=== PATIENT | male | born 1955 | race Caucasian/White ===

== ENCOUNTER 2020-10-22 14:06 | Emergency (ER) | payer MEDICARE ==
[~2020-10-22] VITALS: Ht 182.9 cm; Wt 117.9 kg
--- NOTE | 2020-10-22 14:14 | Emergency Room Report ---
History of Present Illness General Chief Complaint: General Complaint Source: Patient Present Illness HPI 65-year-old male here with a fever. Patient lives at an assisted living facility and has a history of cerebral palsy, mild cognitive impairment, type 2 diabetes, hypertension, hyperlipidemia, hypothyroidism, thyroidectomy, remote history of meningioma. Per the report the patient had a fever of 100.4 F yesterday. He has been feeling of some nasal congestion as well. He was on Levaquin approximately 2-1/2 weeks ago for "a sinus infection." He says that his nasal congestion has somewhat improved but is persisting. He tested negative for Covid 4 days ago but says that he has been around other patients that have had Covid-like symptoms. He ambulated here from the assisted living facility without difficulty. Denies headache, vision changes, chills, chest pain, palpitations, shortness of breath, back pain, abdominal pain, nausea, vomiting, diarrhea, dysuria. Has had a dry cough but is nonproductive. Allergies: Coded Allergies: No Known Allergies (Unverified , 10/22/20) COVID-19 Screening Contact w/high risk pt: Yes Experienced COVID-19 symptoms?: Yes COVID-19 Testing performed [employer]: Yes - 10/18/20 COVID-19 Screening: Negative COVID-19 COVID-19 Testing Source: nose Nursing Documentation-[facility] Hx Hypertension: Yes Hx Diabetes: Yes Review of Systems All Other Systems: negative except mentioned in HPI Physical Exam Vital Signs Date Time Temp Pulse Resp B/P (MAP) Pulse Ox O2 Delivery O2 Flow Rate FiO2 10/22/20 14:07 Room Air Sp02 EP Interpretation: reviewed, normal General Appearance: no apparent distress, alert, non-toxic Head: normocephalic, atraumatic Eyes: bilateral eye normal inspection, bilateral eye PERRL ENT: hearing grossly normal, normal pharynx, no angioedema, normal voice Neck: full range of motion, supple/symm/no masses Respiratory: chest non-tender, lungs clear, normal breath sounds, speaking full sentences Cardiovascular #1: regular rate, rhythm, no edema Cardiovascular #2: 2+ carotid (R), 2+ carotid (L), 2+ radial (R), 2+ radial (L), 2+ dorsalis pedis (R), 2+ dorsalis pedis (L) Gastrointestinal: normal bowel sounds, non tender, soft, non-distended, no guarding, no rebound Rectal: deferred Genitourinary: normal inspection, no CVA tenderness Musculoskeletal: back normal, normal range of motion, gait/station normal, non- tender Neurologic: alert, motor strength/tone normal, oriented x3, sensory intact, responsive, speech normal Psychiatric: judgement/insight normal, memory normal, mood/affect normal, no suicidal/homicidal ideation Lymphatic: no adenopathy Medical Decision Making Diagnostic Impression: Primary Impression: COVID-19 Additional Impression: Fever ER Course Total critical care time: Approximately 35 minutes Due to a high probability of clinically significant, life threatening deterioration, the patient required the highest level of preparedness to intervene emergently and I personally spent this critical care time directly and personally managing the patient. This critical care time included obtaining a history, examining the patient, pulse oximetry, ordering and reviewing studies, ordering treatments, evaluating response to treatment and updating management plan as needed, frequent reassessment and discussion with other providers as well as arranging for ultimate disposition. This critical to care time was performed to assess and manage the high probability of life-threatening deterioration that could result in multiorgan failure. This critical care time is separate from the separately billable procedures and treating other patients. CXR: No infiltrate/effusion. Mediastinum within normal limits. No consolidations. No free air under the diaphragm. No bony abnormalities EKG: NSR, no ischemia, intervals WNL. No ectopy. Rate 76 bpm Rhythm strip: patient monitored for arrhythmias - no malignant dysrhythmias, runs of PVCs, nor pauses noted Laboratory Tests Test 10/22/20 14:40 10/22/20 15:20 White Blood Count 7.2 K/UL (4.8-10.8) Red Blood Count 4.34 M/UL (4.70-6.10) L Hemoglobin 13.8 G/DL (14.2-18.0) L Hematocrit 37.8 % (42.0-52.0) L Mean Corpuscular Volume 87 FL (80-99) Mean Corpuscular Hemoglobin 31.7 PG (27.0-31.0) H Mean Corpuscular Hemoglobin Concent 36.4 G/DL (32.0-36.0) H Red Cell Distribution Width 12.5 % (11.6-14.8) Platelet Count 129 K/UL (150-450) L Mean Platelet Volume 9.6 FL (6.5-10.1) Neutrophils (%) (Auto) 64.6 % (45.0-75.0) Lymphocytes (%) (Auto) 21.8 % (20.0-45.0) Monocytes (%) (Auto) 12.3 % (1.0-10.0) H Eosinophils (%) (Auto) 0.7 % (0.0-3.0) Basophils (%) (Auto) 0.6 % (0.0-2.0) Sodium Level 137 MMOL/L (136-145) Potassium Level 3.4 MMOL/L (3.5-5.1) L Chloride Level 100 MMOL/L (98-107) Carbon Dioxide Level 28 MMOL/L (21-32) Anion Gap 9 mmol/L (5-15) Blood Urea Nitrogen 20 mg/dL (7-18) H Creatinine 1.5 MG/DL (0.55-1.30) H Estimated Glomerular Filtration Rate 46.8 mL/min (>60) Glucose Level 98 MG/DL (74-106) Lactic Acid Level 4.80 mmol/L (0.4-2.0) H Calcium Level 7.8 MG/DL (8.5-10.1) L Ferritin 221 NG/ML (8-388) Total Bilirubin 0.7 MG/DL (0.2-1.0) Aspartate Amino Transferase (AST) 35 U/L (15-37) Alanine Aminotransferase (ALT) 34 U/L (12-78) Alkaline Phosphatase 107 U/L (46-116) Lactate Dehydrogenase 195 U/L (81-234) Total Creatine Kinase 318 U/L (26-308) H Creatine Kinase MB 2.8 NG/ML (0.0-3.6) Creatine Kinase MB Relative Index 0.8 Troponin I 0.012 ng/mL (0.000-0.056) C-Reactive Protein, Quantitative 5.4 mg/dL (0.00-0.90) H Pro-B-Type Natriuretic Peptide Pending Total Protein 6.6 G/DL (6.4-8.2) Albumin 2.8 G/DL (3.4-5.0) L Globulin 3.8 g/dL Albumin/Globulin Ratio 0.7 (1.0-2.7) L Lipase 101 U/L (73-393) Urine Color Pale yellow Urine Appearance Clear Urine pH 6.5 (4.5-8.0) Urine Specific [place] 1.005 (1.005-1.035) Urine Protein Negative (NEGATIVE) Urine Glucose (UA) Negative (NEGATIVE) Urine Ketones Negative (NEGATIVE) Urine Blood Negative (NEGATIVE) Urine Nitrite Negative (NEGATIVE) Urine Bilirubin Negative (NEGATIVE) Urine Urobilinogen Normal MG/DL (0.0-1.0) Urine Leukocyte Esterase Negative (NEGATIVE) Microbiology Date/Time Source Procedure Growth Status 10/22/20 14:40 Nasopharynx SARS-CoV-2 RdRp Gene Assay - Final Complete 65-year-old male here with cough and fever. Patient was afebrile on arrival to the emergency department. He had taken 1000 mg of Tylenol earlier today. He said that his temperature at his assisted care facility was 103.3 F earlier this morning. He was in no distress whatsoever and had normal vital signs thr oughout his stay in the emergency department. He was speaking in full sentences without any evidence of shortness of breath whatsoever. Chest x-ray was normal. CBC and CMP were largely unremarkable. Patient did test positive for COVID-19 here in this emergency department. He had a negative test 4 days ago. Lactic acid was 4.8. Patient received a 30 cc/kg fluid bolus based on his ideal body weight. He received Decadron and azithromycin in the emergency department. Repeat lactic acid after 30 cc/kg fluid bolus was 1.0. Patient never had any vital sign abnormalities whatsoever in the emergency department. No sign of sepsis. Given his normal vital signs and no evidence of hypoxia there is no indication to admit him to the hospital at this time. He was given very strict return precautions to come back to the emergency department if he has any worsening symptoms such as shortness of breath. He was given a prescription for azithromycin and decongestants, expressed understanding and was discharged. Last Vital Signs Date Time Temp Pulse Resp B/P (MAP) Pulse Ox O2 Delivery O2 Flow Rate FiO2 10/22/20 14:07 Room Air Scripts Azithromycin* (ZITHROMAX*) 250 Mg Tablet 250 MG ORAL DAILY for 7 Days, TAB Prov: Ashish Lala M.D. 10/22/20 Pseudoephedrine Hcl* (SUDAFED*) 60 Mg Tablet 60 MG PO Q6H for 5 Days, TAB Prov: Ashish Lala M.D. 10/22/20 Clobetasol Propionate (CLOBEX) 59 Ml Lotion 59 ML TP DAILY for 7 Days, ML Prov: Ashish Lala M.D. 10/22/20 Ashish Lala M.D. Oct 22, 2020 14:14
[2020-10-22 14:15] VITALS: BP 106/62
--- NOTE | 2020-10-22 14:15 | NUR ---
ED Nurse Note: Pt walked in using [facility], referred by MD for checkup d/t fever yesterday and cough x 1 week. Respirations even and unlabored on room air. Vitals stable as documented. A+Ox4, speaking in complete sentences.
[2020-10-22] MEDS ORDERED: ALFUZOSIN HCL10 MG PO (14:18)
[2020-10-22] MEDS ORDERED: ATROVENT HFA12.9 GM IH (14:18)
[2020-10-22] MEDS ORDERED: CARVEDILOL12.5 MG ORAL (14:18)
[2020-10-22] MEDS ORDERED: ASPIRIN EC81 MG ORAL (14:18)
[2020-10-22] MEDS ORDERED: ATORVASTATIN CA80 MG ORAL (14:18)
[2020-10-22] MEDS ORDERED: CELEBREX200 MG ORAL (14:24)
[2020-10-22] MEDS ORDERED: RESTORIL15 MG ORAL (14:24)
[2020-10-22] MEDS ORDERED: FLUTICASONE PRO16 G1 NASAL (14:24)
[2020-10-22] MEDS ORDERED: FLOMAX0.4 MG ORAL (14:24)
[2020-10-22] MEDS ORDERED: PROSCAR5 MG ORAL (14:24)
[2020-10-22] MEDS ORDERED: FAMOTIDINE20 MG ORAL (14:24)
[2020-10-22] MEDS ORDERED: JANUVIA100 MG ORAL (14:24)
[2020-10-22] MEDS ORDERED: VENLAFAXINE HC150 MG ORAL (14:24)
[2020-10-22] MEDS ORDERED: LOSARTAN-HCTZ1 EAC1 ORAL (14:24)
[2020-10-22] MEDS ORDERED: SYNTHROID150 MCG ORAL (14:24)
[2020-10-22] MEDS ORDERED: TRAZODONE HCL150 MG ORAL (14:24)
[2020-10-22] MEDS ORDERED: ZYRTEC10 MG ORAL (14:24)
[2020-10-22] MEDS ORDERED: VITAMIN B COMP1 EAC2 ORAL (14:24)
[2020-10-22] MEDS ORDERED: VITAMIN B-12100 MC1 PO (14:26)
[2020-10-22] MEDS ORDERED: CALCIUM 250+D1 EACH PO (14:26)
[2020-10-22] MEDS ORDERED: GABAPENTIN100 MG ORAL (14:26)
[2020-10-22] MEDS ORDERED: VITAMIN C500 M1 ORAL (14:26)
[2020-10-22] MEDS ORDERED: IBUPROFEN600 M1 ORAL (14:35)
[2020-10-22] MEDS ORDERED: TRAMADOL HCL50 MG ORAL (14:35)
[2020-10-22] MEDS ORDERED: L-LYSINE500 M2 PO (14:35)
[2020-10-22] MEDS ORDERED: MAPAP500 M2 PO (14:35)
[2020-10-22] MEDS ORDERED: HYDROCODON-ACE1 EA15 ORAL (14:35)
[2020-10-22 15:12] LABS: BASOPHILS % (AUTO) 0.6 % (0.0-2.0); EOSINOPHILS % (AUTO) 0.7 % (0.0-3.0); HEMATOCRIT 37.8 % (42.0-52.0); HEMOGLOBIN 13.8 G/DL (14.2-18.0); LYMPHOCYTES % (AUTO) 21.8 % (20.0-45.0); MEAN CORPUSCULAR VOLUME 87 FL (80-99); MONOCYTES % (AUTO) 12.3 % (1.0-10.0); NEUTROPHILS % (AUTO) 64.6 % (45.0-75.0); PLATELET COUNT 129 K/UL (150-450); RED BLOOD COUNT 4.34 M/UL (4.70-6.10); RED CELL DISTRIBUTION WIDTH 12.5 % (11.6-14.8); WHITE BLOOD COUNT 7.2 K/UL (4.8-10.8)
--- NOTE | 2020-10-22 15:20 | Diagnostic Imaging Report ---
Indication: Cough Technique: One view of the chest Comparison: none Findings: Heart size is normal. The lungs and pleural spaces are clear. Impression: No definite acute process
[2020-10-22 15:22] LABS: CALCIUM 7.8 MG/DL (8.5-10.1); CREATININE 1.5 MG/DL (0.55-1.30); POTASSIUM 3.4 MMOL/L (3.5-5.1)
[2020-10-22 15:30] VITALS: BP 141/76
[2020-10-22 15:45] LABS: ALBUMIN 2.8 G/DL (3.4-5.0); ALBUMIN/GLOBULIN RATIO 0.7 (1.0-2.7); BILIRUBIN,TOTAL 0.7 MG/DL (0.2-1.0); CKMB 2.8 NG/ML (0.0-3.6)
[2020-10-22] MEDS ORDERED: Azithromycin 250mg tab ORAL ONE (15:45)
[2020-10-22 16:30] LABS: APPEARANCE,URINE CLEAR; BILIRUBIN, URINE NEGATIVE (NEGATIVE); COLOR,URINE PALE YELLOW; GLUCOSE, URINE (UA) NEGATIVE (NEGATIVE); KETONES,URINE NEGATIVE (NEGATIVE); LEUKOCYTE ESTERASE ,URINE NEGATIVE (NEGATIVE); NITRITE,URINE NEGATIVE (NEGATIVE); PH,URINE 6.5 (4.5-8.0); PROTEIN,URINE NEGATIVE (NEGATIVE); UROBILINOGEN,URINE NORMAL MG/DL (0.0-1.0)
--- NOTE | 2020-10-22 16:30 | NUR ---
ED Nurse Note: lactic reflex sent to lab
[2020-10-22] MEDS ORDERED: PSEUDOEPHEDRINE60 MG PO (16:42)
[2020-10-22] MEDS ORDERED: ZITHROMAX250 MG ORAL (16:42)
[2020-10-22] MEDS ORDERED: CLOBEX59 ML TP (16:42)
[2020-10-22 18:20] VITALS: BP 138/71
--- NOTE | 2020-10-22 18:20 | NUR ---
ER DISCHARGE NOTE: Patient is cleared to be discharged per ERMD, pt is aox4, on room air, with stable vital signs. pt was given dc and prescription instructions, pt was able to verbalize understanding, pt id band and iv site removed without complications. pt is able to ambulate with steady gait. pt took all belongings. Pt getting car ride from friend back to assisted living.
== END 2020-10-22 18:20 | disposition home or self-care (01) ==
LOC: EMR 15:05
DX: U07.1 COVID-19 (principal); R50.9 Fever, unspecified; I10 Essential (primary) hypertension; E11.9 Type 2 diabetes mellitus without complications
CPT/HCPCS: 36415; 71045; 80053; 81003; 82550; 82553; 82728; 83605; 83615; 83690; 84484; 85025; 86140; 87040; 93005; 96360; 96361; 99291; J7030; J7040; J8540; U0002; 83880